=== PATIENT | male | born 1965 | race Caucasian/White ===

== ENCOUNTER 2024-02-16 15:24 | Emergency (ER) | payer OTHER ==
[~2024-02-16] VITALS: Ht 180.3 cm; Wt 77.3 kg
[2024-02-16 15:35] VITALS: PULSE 64; RESP 17; O2SAT 97
[2024-02-16] MEDS: ONDANSETRON HCL 4 MG/2 ML VIAL IV ONE (16:26)
[2024-02-16] MEDS: MORPHINE SULFATE 4 MG/ML SYR/VIAL IV ONE (16:28)
[2024-02-16] MEDS: methylPREDNISolone SOD SUCC 125 MG/2 ML VL IM ONE (16:39)
[2024-02-16 19:24] VITALS: TEMP 98.2
[2024-02-16 21:30] VITALS: BP 126/72; PULSE 73; RESP 16; O2SAT 97
== END 2024-02-16 18:16 | disposition admitted as inpatient to this hospital (09) ==
LOC: EDBD 15:24 → ER 15:24
DX: M25.461 Effusion, right knee (principal)
CPT/HCPCS: 73562; 96372; 96374; 96375; 99284; J2270; J2405; J2919